=== PATIENT | male | born 1995 | race Caucasian/White ===

== ENCOUNTER 2016-12-27 00:36 | Emergency (ER) | payer OTHER ==
[~2016-12-27] VITALS: Ht 180.3 cm; Wt 88.3 kg
[~2016-12-27 00:36] MED LIST: NAPR-576 PO
[2016-12-27 01:23] VITALS: BP 133/99; PULSE 125; RESP 18; TEMP 99.1; O2SAT 95
[2016-12-27] MEDS ORDERED: SODIUM CHLOR 0.9% 1000 ML INJ 1,000 ML IV ONE (01:32)
[2016-12-27] MEDS ORDERED: diphenhydrAMINE HCL 50 MG/ML VIAL IV PUSH ONE (01:45)
[2016-12-27] MEDS ORDERED: PROCHLORPERAZINE INJ 10 MG/2 ML VIAL IVS ONE (01:45)
[2016-12-27] MEDS ORDERED: SODIUM CHLORIDE 0.9% FLUSH 5 ML FLUSH IVF PRN (01:45)
--- NOTE | 2016-12-27 01:45 | PD ---
HPI . Vomiting and diarrhea Chief Complaint: GI Complaint Time Seen by Provider: 01:32 Travel History International Travel<30 days: No Contact w/Intl Traveler<30days: No Traveled to known affect area: No History of Present Illness HPI Patient presents with the acute onset of vomiting and diarrhea. This started after he got off of work tonight. He states that his mother or grandmother is in the hospital with same. He denies fever. He denies any urinary symptoms. [id number]: Abdomen DURATION: Less than 4 hours TIMING: Continuous CONTEXT: Mother is sick with the same thing ASSOCIATED SYMPTOMS: No associated symptoms PFSH Past Medical History ADHD: Yes Asthma: Yes Autoimmune Disease: No Blood Disorders: No Anxiety: Yes Depression: No Heart Rhythm Problems: No Cardiovascular Problems: No High Cholesterol: Yes Chest Pain: No Cystic Fibrosis: No Diminished Hearing: No Gastrointestinal Disorders: Yes Genitourinary: No Headaches: No Hypertension: No Musculoskeletal: No Neurologic: No Psychiatric: Yes (adhd) Reproductive: No Respiratory: Yes Immunizations Current: Yes Seizures: No Sickle Cell Disease: No Sleep Apnea: No Tetanus Vaccination: < 5 Years Influenza Vaccination: No Past Surgical History Abdominal Surgery: No Cardiac Surgery: No Ear Surgery: Yes (tubes) Endocrine Surgery: No Eye Surgery: No Genitourinary Surgery: Yes (circumcision) Gynecologic Surgery: No Neurologic Surgery: No Oral Surgery: No Thoracic Surgery: No Tympanostomy Tube: Yes (age 1 tubes bilat) Other Surgery: Yes (tubes in ears) Social History Alcohol Use: No Tobacco Use: No Substance Use: No Allergies-Medications (Allergen,Severity, Reaction): Coded Allergies: No Known Allergies (Verified , 03/29/16) Reported Meds & Prescriptions Reported Meds & Active Scripts Active Naproxen 500 Mg Tab 500 Mg PO Q12HR PRN Review of Systems Except as stated in HPI: all other systems reviewed are Neg General / Constitutional: No: Fever, Chills Respiratory: Positive: Cough, No: Shortness of Breath Gastrointestinal: Positive: Nausea, Vomiting, Diarrhea Genitourinary: No: Urgency, Frequency, Dysuria Physical Exam Narrative GENERAL: Healthy-appearing young man in no acute distress. SKIN: Warm and dry. HEAD: Atraumatic. Normocephalic. EYES: Pupils equal and round. ENT: No nasal bleeding or discharge. Mucous membranes pink and moist. NECK: Trachea midline. Neck is supple. CARDIOVASCULAR: Regular rate and rhythm. Heart sounds are normal. RESPIRATORY: No accessory muscle use. Lungs are clear with full air movement throughout. GASTROINTESTINAL: Abdomen soft, non-tender, nondistended. MUSCULOSKELETAL: No obvious deformities. No edema. NEUROLOGICAL: Awake and alert. No obvious cranial nerve deficits. Motor grossly within normal limits. Normal speech. PSYCHIATRIC: Appropriate mood and affect; insight and judgment normal. Data Data Last Documented VS Vital Signs Date Time Temp Pulse Resp B/P Pulse Ox O2 Delivery O2 Flow Rate FiO2 12/27/16 03:06 99 18 132/70 98 Room Air 12/27/16 01:23 99.1 Orders Iv Access Insert/Monitor (12/27/16 01:32) Ecg Monitoring (12/27/16 01:32) Oximetry (12/27/16 01:32) Sodium Chlor 0.9% 1000 Ml Inj (Ns 1000 M (12/27/16 01:32) Sodium Chloride 0.9% Flush (Ns Flush) (12/27/16 01:45) Prochlorperazine Inj (Compazine Inj) (12/27/16 01:45) Diphenhydramine Inj (Benadryl Inj) (12/27/16 01:45) MDM Medical Decision Making Medical Screen Exam Complete: Yes Emergency Medical Condition: Yes Differential Diagnosis Differential diagnosis includes but is not limited to viral gastritis, food poisoning, pancreatitis, pneumonia, hepatitis, acute coronary syndrome, Narrative Course Patient presents for the treatment of the acute onset of vomiting and diarrhea. He has had no further vomiting or diarrhea since receiving IV fluids and medication. Diagnosis Primary Impression: Gastroenteritis Patient Instructions: Gastroenteritis (DC), General Instructions Med/Other Pt SpecificInfo: Prescription(s) given Scripts Promethazine (Phenergan)25 Mg Tab25 Mg PO Q6H PRN (Nausea/Vomiting) #10 TAB Ref 0 Prov:Em Hsu MD 12/27/16 Disposition: 01 DISCHARGE HOME Condition: Stable Em Hsu MD Dec 27, 2016 01:45
[2016-12-27 01:50] VITALS: O2SAT 98
[2016-12-27 03:06] VITALS: BP 132/70; PULSE 99; RESP 18; O2SAT 98
[2016-12-27] MEDS ORDERED: PROM25TA5 PO (03:26)
== END 2016-12-27 04:01 | disposition home or self-care (01) ==
LOC: PHED 00:36
DX: K52.9 Noninfective gastroenteritis and colitis, unspecified (principal); F90.9 Attention-deficit hyperactivity disorder, unspecified type; E78.00 Pure hypercholesterolemia, unspecified; F41.9 Anxiety disorder, unspecified; J45.909 Unspecified asthma, uncomplicated
CPT/HCPCS: 96374; 96375; 99283; J0780; J1200; J7030

== ENCOUNTER 2017-04-22 17:32 | Emergency (ER) | payer OTHER ==
[~2017-04-22] VITALS: Ht 180.3 cm; Wt 93.5 kg
[~2017-04-22 17:32] MED LIST changes: -NAPR-576 PO; +PROM25TA5 PO
[2017-04-22 17:34] VITALS: BP 147/91; PULSE 77; RESP 16; TEMP 97.9; O2SAT 99
--- NOTE | 2017-04-22 18:08 | PD ---
HPI Chief Complaint: Musculoskeletal Complaint Time Seen by Provider: 17:55 Travel History International Travel<30 days: No Contact w/Intl Traveler<30days: No Traveled to known affect area: No History of Present Illness HPI 21-year-old male complains of chest pain. Patient states that he was carrying a heavy dog this morning. Patient started having sharp upper sternal pain this afternoon. Patient states the pain is worse with some movement of the upper extremity. Patient denies any fever chills. Patient states that he has mild intermittent dry cough along time is not new. Patient denies any nausea vomiting. Patient denies any history of CAD. Patient denies history hypertension, diabetes, hyperlipidemia. Patient is a nonsmoker. Patient denies family history of heart disease early in life. On a scale of 1-10 the pain is an 8. PFSH Past Medical History ADHD: Yes Asthma: Yes Autoimmune Disease: No Blood Disorders: No Anxiety: Yes Depression: No Heart Rhythm Problems: No Cardiovascular Problems: No High Cholesterol: Yes Chest Pain: No Cystic Fibrosis: No Diminished Hearing: No Gastrointestinal Disorders: Yes Genitourinary: No Headaches: No Hypertension: No Musculoskeletal: No Neurologic: No Psychiatric: Yes (adhd) Reproductive: No Respiratory: Yes Immunizations Current: Yes Seizures: No Sickle Cell Disease: No Sleep Apnea: No Past Surgical History Abdominal Surgery: No Cardiac Surgery: No Ear Surgery: Yes (tubes) Endocrine Surgery: No Eye Surgery: No Genitourinary Surgery: Yes (circumcision) Gynecologic Surgery: No Neurologic Surgery: No Oral Surgery: No Thoracic Surgery: No Tympanostomy Tube: Yes (age 1 tubes bilat) Other Surgery: Yes (tubes in ears) Social History Alcohol Use: No Tobacco Use: No Substance Use: No Allergies-Medications (Allergen,Severity, Reaction): Coded Allergies: No Known Allergies (Verified , 04/22/17) Reported Meds & Prescriptions Reported Meds & Active Scripts Active No Active Prescriptions or Reported Medications Review of Systems General / Constitutional: No: Fever Eyes: No: Visual changes HENT: No: Headaches Cardiovascular: Positive: Chest Pain or Discomfort Respiratory: No: Shortness of Breath Gastrointestinal: No: Abdominal Pain Genitourinary: No: Dysuria Musculoskeletal: No: Pain Skin: No Rash Neurologic: No: Weakness Psychiatric: No: Depression Endocrine: No: Polydipsia Hematologic/Lymphatic: No: Easy Bruising Physical Exam Narrative GENERAL: Well-nourished, well-developed patient. SKIN: Focused skin assessment warm/dry. HEAD: Normocephalic. EYES: No scleral icterus. No injection or drainage. NECK: Supple, trachea midline. No JVD or lymphadenopathy. CARDIOVASCULAR: Regular rate and rhythm without murmurs, gallops, or rubs. RESPIRATORY: Breath sounds equal bilaterally. No accessory muscle use. GASTROINTESTINAL: Abdomen soft, non-tender, nondistended. MUSCULOSKELETAL: No cyanosis, or edema. BACK: Nontender without obvious deformity. No CVA tenderness. Mild to moderate tenderness on palpation parasternal area upper part of the sternum. No crepitus no deformity noted of the chest wall. No ecchymosis noted. Data Data Last Documented VS Vital Signs Date Time Temp Pulse Resp B/P Pulse Ox O2 Delivery O2 Flow Rate FiO2 04/22/17 17:34 97.9 77 16 147/91 99 Orders Electrocardiogram (04/22/17 18:02) Chest, Single Ap (04/22/17 18:02) [facility] Medical Decision Making Medical Screen Exam Complete: Yes Emergency Medical Condition: Yes Interpretation(s) 1839 PM. EKG shows sinus rhythm nonspecific ST-T wave change. Chest x-ray shows no acute process. Differential Diagnosis Differential diagnosis including musculoskeletal, angina, WI, PE, pneumothorax. Narrative Course 21-year-old male with chest pain. Diagnosis Primary Impression: Atypical chest pain Patient Instructions: General Instructions Additional Instructions: Advil Tylenol for pain. Follow-up with personal physician. Return if increasing chest pain shortness of breath. Med/Other Pt SpecificInfo: No Meds Exist/No RX given Scripts No Active Prescriptions or Reported Meds Disposition: 01 DISCHARGE HOME Condition: Stable Anthony Perez MD Apr 22, 2017 18:08
--- NOTE | 2017-04-22 18:42 | RADRPT ---
EXAM DATE/TIME: 04/22/2017 18:11 [facility] COMPARISON: No previous studies available for comparison. INDICATIONS : Chest pain in mid-sternal region. MEDICAL HISTORY : None. SURGICAL HISTORY : None. ENCOUNTER: Initial ACUITY: 1 day PAIN SCORE: 2/10 LOCATION: Bilateral chest FINDINGS: A single view of the chest demonstrates the lungs to be symmetrically aerated without evidence of mas s, infiltrate or effusion. No evidence of pneumothorax. The cardiomediastinal contours are unremark able. Osseous structures are intact.CONCLUSION: The lungs are clear. Juan Jose Ortega MD on April 22, 2017 at 18:40 Board Certified Radiologist. This report was verified electronically.
--- NOTE | 2017-04-23 13:46 | EKG ---
Date Performed: 04/22/2017 Time Performed: 18:09:12 PTAGE: 21 years EKG: Sinus rhythm WITH SINUS ARRHYTHMIA POSSIBLE RIGHT VENTRICULAR CONDUCTION DELAY BORDERLINE ECG Compared to prior t racing no significant change PREVIOUS TRACING : 03/10/2005 21.34 DOCTOR: Evan Laird Interpretating Date/Time 04/23/2017 13:43:34
== END 2017-04-22 18:46 | disposition home or self-care (01) ==
LOC: PHED 17:32
DX: R07.89 Other chest pain (principal)
CPT/HCPCS: 71010; 93005; 99284

== ENCOUNTER 2018-02-09 17:59 | Emergency (ER) | payer BC, OTHER ==
[~2018-02-09] VITALS: Ht 180.3 cm; Wt 93.5 kg
[2018-02-09 18:03] VITALS: BP 162/100; PULSE 117; RESP 16; TEMP 99.2; O2SAT 96
--- NOTE | 2018-02-09 20:11 | PD ---
HPI Chief Complaint: Fever Time Seen by Provider: 20:03 Travel History International Travel<30 days: No Contact w/Intl Traveler<30days: No Traveled to known affect area: No History of Present Illness HPI Patient comes in complaining of cough 2 days, denies any productiveness, low- grade fever while at home. Patient denies any alleviating or aggravating factors. Patient denies any sore throat, runny nose, rash, neck pain, flank pain, chest pain, or abdominal pain. Patient stays well WHILE I'M HERE I'LL MENTION MY INGROWN TOENAIL ON LEFT GREAT TOE, which has been hurting since last week. No known drug allergy Patient denies any significant surgical history PFSH Past Medical History ADHD: Yes Asthma: Yes Autoimmune Disease: No Blood Disorders: No Anxiety: Yes Depression: No Heart Rhythm Problems: No Cardiovascular Problems: No High Cholesterol: Yes Chest Pain: No Cystic Fibrosis: No Diminished Hearing: No Gastrointestinal Disorders: Yes Genitourinary: No Headaches: No Hypertension: No Musculoskeletal: No Neurologic: No Psychiatric: Yes (adhd) Reproductive: No Respiratory: Yes Immunizations Current: Yes Seizures: No Sickle Cell Disease: No Sleep Apnea: No Influenza Vaccination: No Past Surgical History Abdominal Surgery: No Cardiac Surgery: No Ear Surgery: Yes (tubes) Endocrine Surgery: No Eye Surgery: No Genitourinary Surgery: Yes (circumcision) Gynecologic Surgery: No Neurologic Surgery: No Oral Surgery: No Thoracic Surgery: No Tympanostomy Tube: Yes (age 1 tubes bilat) Other Surgery: Yes (tubes in ears) Social History Alcohol Use: No Tobacco Use: No Substance Use: No Allergies-Medications (Allergen,Severity, Reaction): Coded Allergies: No Known Allergies (Verified Adverse Reaction, Unknown, 02/09/18) Reported Meds & Prescriptions Reported Meds & Active Scripts Active No Active Prescriptions or Reported Medications Review of Systems General / Constitutional: No: Fever Eyes: No: Visual changes HENT: Positive: Headaches Cardiovascular: No: Chest Pain or Discomfort Respiratory: Positive: Cough, No: Shortness of Breath Gastrointestinal: No: Abdominal Pain Genitourinary: No: Dysuria Musculoskeletal: No: Pain Skin: No Rash Neurologic: No: Weakness Psychiatric: No: Depression Endocrine: No: Polydipsia Hematologic/Lymphatic: No: Easy Bruising Physical Exam Narrative GENERAL: SKIN: Warm and dry. HEAD: Atraumatic. Normocephalic. EYES: Pupils equal and round. No scleral icterus. No injection or drainage. ENT: No nasal bleeding or discharge. Mucous membranes pink and moist. NECK: Trachea midline. No JVD. CARDIOVASCULAR: Regular rate and rhythm. RESPIRATORY: No accessory muscle use. Clear to auscultation. Breath sounds equal bilaterally. GASTROINTESTINAL: Abdomen soft, non-tender, nondistended. MUSCULOSKELETAL: Extremities without clubbing, cyanosis, or edema. No obvious deformities. Left ingrown toenail hallucis NEUROLOGICAL: Awake and alert. No obvious cranial nerve deficits. Motor grossly within normal limits. Five out of 5 muscle strength in the arms and legs. Normal speech. PSYCHIATRIC: Appropriate mood and affect; insight and judgment normal. Data Data Last Documented VS Vital Signs Date Time Temp Pulse Resp B/P (MAP) Pulse Ox O2 Delivery O2 Flow Rate FiO2 02/09/18 19:45 16 98 Room Air 02/09/18 18:03 99.2 117 162/100 (120) Orders Orders Chest, Pa & Lat (02/09/18 20:04) Ct Brain W/O Iv Contrast(Rout) (02/09/18 20:04) Lidocaine 1% Inj (Xylocaine 1% Inj) (02/09/18 20:15) MDM Medical Decision Making Medical Screen Exam Complete: Yes Emergency Medical Condition: Yes Medical Record Reviewed: Yes Differential Diagnosis Pneumonia versus bronchitis versus infected ingrown toenail versus intracranial hemorrhage versus sinusitis Narrative Course Head CT according to radiologist does not show any evidence of sinusitis, but does show anatomic variants Dandy-Walker and Cavum septum pellucidum Chest x-ray according to radiologist shows a streaky right middle lobe atelectasis Procedures Procedure Narrative Left entire toe was cleaned in normal sterile fashion. The left great toe was then prepared for digital block with 1% Lido without epi , the nailbed matrix was with scissors. And the entire toenail was removed. Patient tolerated the procedure well and actually wanted to take his toenail home as a severe. Area was cleaned and placed antibiotic ointment and covered it with small pressure Kerlix bandage. Diagnosis Primary Impression: Early pneumonia Additional Impression: Onychocryptosis status post nail removal Patient Instructions: Community Acquired Pneumonia (DC), General Instructions, Partial Nail Avulsion for Ingrown Nail (DC) Scripts Benzonatate (Tessalon Perles) 100 Mg Cap 200 MG PO TID Y for COUGH for 5 Days, #15 CAP 0 Refills Prov: Kofi Doran MD 02/09/18 Ciprofloxacin (Cipro) 500 Mg Tab 500 MG PO BID for Infection for 7 Days, #14 TAB 0 Refills Prov: Kofi Doran MD 02/09/18 Disposition: 01 DISCHARGE HOME Condition: Stable Kofi Doran MD Feb 09, 2018 20:11
[2018-02-09] MEDS ORDERED: LIDOCAINE HCL 1% 20 ML VIAL INFIL ONE (20:15)
[2018-02-09 20:45] VITALS: BP 150/93; PULSE 125; RESP 18; O2SAT 98
--- NOTE | 2018-02-09 20:57 | RADRPT ---
EXAM DATE/TIME: 02/09/2018 20:21 [facility] COMPARISON: CHEST SINGLE AP, April 22, 2017, 18:11. INDICATIONS : Cough. MEDICAL HISTORY : None. SURGICAL HISTORY : None. ENCOUNTER: Initial ACUITY: 1 day PAIN SCORE: 0/10 LOCATION: Bilateral chest FINDINGS: Streaky atelectasis seen in the right middle lobe. Lungs otherwise appear clear. No pleural effusion or pneumothorax. Heart size stable, within normal limits. CONCLUSION: Streaky right middle lobe atelectasis. Zaid Lozano MD on February 09, 2018 at 20:54 Board Certified Radiologist. This report was verified electronically.
--- NOTE | 2018-02-09 21:12 | RADRPT ---
EXAM DATE/TIME: 02/09/2018 20:57 [facility] COMPARISON: No previous studies available for comparison. INDICATIONS : Headache and fever. RADIATION DOSE: 61.64 CTDIvol (mGy) MEDICAL HISTORY : None SURGICAL HISTORY : None. ENCOUNTER: Initial ACUITY: 1 day PAIN SCALE: 5/10 LOCATION: cranial TECHNIQUE: Multiple contiguous axial images were obtained of the head. Using automated exposure control and adj ustment of the mA and/or kV according to patient size, radiation dose was kept as low as reasonably a chievable to obtain optimal diagnostic quality images. DICOM format image data is available electro nically for review and comparison. FINDINGS: CEREBRUM: The ventricles are normal for age. No evidence of midline shift, mass lesion, hemorrhage or acute in farction. No extra-axial fluid collections are seen. There is anatomic variant cavum septum pellucid um. POSTERIOR FOSSA: The cerebellum and brainstem are intact. The 4th ventricle is midline. The cerebellopontine angle i s unremarkable. Anatomic variant Dandy-Walker configuration noted. EXTRACRANIAL: The visualized portion of the orbits is intact. SKULL: The calvaria is intact. No evidence of skull fracture. CONCLUSION: No acute intracranial abnormality. Anatomic variants Dandy-Walker and cavum septum pellucidum. Zaid Lozano MD on February 09, 2018 at 21:07 Board Certified Radiologist. This report was verified electronically.
[2018-02-09] MEDS ORDERED: BENZ100 PO (21:42)
[2018-02-09] MEDS ORDERED: CIPR-9 PO (21:42)
[2018-02-09 22:23] VITALS: BP 158/87
== END 2018-02-09 22:40 | disposition home or self-care (01) ==
LOC: PHED 17:59
DX: J18.9 Pneumonia, unspecified organism (principal); L60.0 Ingrowing nail
CPT/HCPCS: 11730; 70450; 71046